=== PATIENT | male | born 1975 | race Hispanic/Latino ===

== ENCOUNTER 2019-11-22 06:02 | Emergency (ER) | payer SELFPAY ==
[2019-11-22] MEDS ORDERED: Ketorolac Tromethamine 30 MG/ML VIAL ONE (06:22)
[2019-11-22] MEDS ORDERED: Ondansetron PF 4 MG/2 ML Vial ONE (06:23)
[2019-11-22] MEDS ORDERED: Morphine 4 MG/ML VIAL ONE (06:23)
[2019-11-22] MEDS ORDERED: HYDROcodone/Acetaminophen 5/325 mg Tablet ONE (07:09)
[2019-11-22 07:29] LABS: Bilirubin Negative (Negative); Blood, Urine 3+ (Negative); Clarity Clear (Clear); Glucose, Urine (Dipstick) Normal (Negative); Ketone, Urine Negative (Negative); Leukocyte Negative Leu/uL (Negative); Nitrite Negative (Negative); Protein, Urine (Dipstick) 20 mg/dL (Neg-Trace); RBC/HPF Greater than 50 HPF (0-3); Specific Gravity, Urine 1.026 (1.002-1.036); Squamous Epithelial None Seen HPF (0-3); Urobilinogen Normal mg/dL (Less than 2); WBC/HPF 0-3 HPF (0-3); pH, Urine 5.5 (5.0-9.0)
[2019-11-22 07:49] LABS: Bacteria/HPF None Seen HPF (None Seen)
== END 2019-11-22 07:58 | disposition home or self-care (01) ==
LOC: ERS 06:02
DX: N20.0 Calculus of kidney (principal); R11.2 Nausea with vomiting, unspecified
CPT/HCPCS: 81003; 81015; 96361; 96374; 96375; J1885; J2270; J2405

== ENCOUNTER 2020-03-08 12:27 | Outpatient (CLI) | payer OTHER ==
--- NOTE | 2020-03-08 14:29 | CT ---
CT Abdomen Pelvis W WO con History: Hematuria Comparison: CT abdomen and pelvis without contrast stone protocol September 2012 Findings: Lung bases are clear. No pericardial effusion. On the noncontrast portion of the exam there is no nephroureterolithiasis or hydroureteronephrosis. N o secondary evidence of a recently passed stone. No abnormal enhancing urothelial nor renal mass. Small posterior cortex right interpolar hypodensity measures 5 mm likely cyst. Aortoiliac contour is nonaneurysmal. The prostate is mildly enlarged with transitional zone calcifications. On the delayed phase of contrast there are no filling defects within the calyces, pelvis, ureters, no r posterior urinary bladder wall. Intraosseous hemangioma of L1. No acute osseous abnormality. Impression: 1. No nephroureterolithiasis or hydroureteronephrosis. No secondary evidence of a recently passed sto ne. 2. No abnormal enhancing renal nor urothelial mass. 3. Moderate prostatomegaly with transitional zone calcifications can be a source of microhematuria. 4. No acute inflammatory process within the abdomen or pelvis.
[2020-03-08] MEDS ORDERED: Iopamidol-370 76% 500 ML 1 ML ONE (15:20)
== END 2020-03-08 12:28 | disposition home or self-care (01) ==
LOC: BICCT 12:27
PROVIDERS: ATTEND Urology
DX: N20.0 Calculus of kidney (principal); R31.29 Other microscopic hematuria; N40.0 Benign prostatic hyperplasia without lower urinary tract symptoms
CPT/HCPCS: 74178